=== PATIENT | male | born 1985 | race Caucasian/White ===

== ENCOUNTER 2022-08-06 11:57 | Inpatient (IN) | payer BC ==
[~2022-08-06] VITALS: Ht 180.3 cm; Wt 86.6 kg
[2022-08-06 11:30] VITALS: BP 157/90
[2022-08-06 12:12] VITALS: BP 147/102
[2022-08-06 13:29] LABS: BASO % 0.3 % (0.0-1.0); EOS % 1.2 % (1.0-4.0); HEMATOCRIT 44.5 % (42.0-52.0); LYMPH # 0.9 10*3/uL (1.3-4.4); LYMPH % 26.4 % (27.0-41.0); MEAN CELL VOLUME 100.9 fl (80.0-94.0); MEAN CORPUSCULAR HGB 35.6 pg (27.0-31.0); MEAN CORPUSCULAR HGB CONC 35.3 g/dl (33.0-37.0); MEAN PLATELET VOLUME 10.1 fl (9.6-12.3); MONO # 0.4 10*3/uL (0.1-1.0); MONO % 12.2 % (3.0-9.0); NEUT % 59.9 % (47.0-73.0); PLATELET COUNT AUTOMATED 150 10*3/uL (130-400); RED BLOOD COUNT 4.41 10*6/uL (4.50-5.90); RED CELL DISTRI WIDTH 11.9 % (0-14.5); WHITE BLOOD COUNT 3.3 10*3/uL (4.8-10.8)
[2022-08-06 13:40] LABS: ACT PARTIAL THROMBO TIME 28.3 SECONDS (20.0-32.1)
[2022-08-06 13:49] LABS: ALKALINE PHOSPHATASE 107 U/L (45-117); BUN 7 mg/dl (7-24); CHLORIDE 105 mmol/L (98-107); CREATININE 0.86 mg/dL (0.70-1.30); LIPASE 158 U/L (73-393); POTASSIUM 3.7 mmol/L (3.5-5.1); SGOT/AST 298 IU/L (3-35); SGPT/ALT 144 U/L (12-78); SODIUM 137 mmol/L (136-145); TOTAL PROTEIN 8.4 gm/dL (6.4-8.2)
[2022-08-06 17:17] VITALS: BP 143/83
[2022-08-07] VITALS: BP 134/65
[2022-08-07 00:31] LABS: BILIRUBIN 1+ (Negative); BLOOD Negative (Negative); CLARITY Clear (Clear); COLOR Dark Yellow (Yellow); GLUCOSE Negative (Negative); KETONE Negative (Negative); LEUKO ESTERASE Negative (Negative); NITRITE Negative (Negative); PH 6.5 (4.5-8.0); URINE AMPHETAMINES < 1000 (1000ng/ml); URINE BARBITURATES < 200 (200ng/ml); URINE BENZODIAZEPINES < 200 (200ng/ml); URINE CANNABINOIDS (THC) < 50 (50ng/ml); URINE COCAINE < 300 (300ng/ml); URINE METHADONE < 300 (300ng/ml); URINE OPIATES < 300 (300ng/ml); UROBILINOGEN >= 8.0 E.U./dl (0.0-1.0)
[2022-08-07 00:32] LABS: URINE PHENCYCLIDINE < 25 (25ng/ml)
[2022-08-07 00:47] LABS: WBC 0-2 wbc/hpf (0-5)
[2022-08-07 07:38] LABS: TOTAL PROTEIN 7.5 gm/dL (6.4-8.2)
[2022-08-07 08:00] VITALS: BP 139/82
[2022-08-07] MEDS ORDERED: BUPRENORPHINE HY8 MG SL (08:06)
[2022-08-07 12:00] VITALS: BP 134/80
[2022-08-07 15:42] VITALS: BP 130/80
== END 2022-08-07 19:30 | disposition left against medical advice (07) | DRG 894 ==
LOC: ED 11:57 → EDHOLD 14:22 → 5E 14:22 → EDHOLD 14:53 → 5E 16:32
PROVIDERS: Emergency Medicine; Registered Nurse; ADMIT Internal Medicine; ATTEND Internal Medicine
DX: F10.239 Alcohol dependence with withdrawal, unspecified (principal); E44.1 Mild protein-calorie malnutrition; E80.6 Other disorders of bilirubin metabolism; R74.01 Elevation of levels of liver transaminase levels; F17.210 Nicotine dependence, cigarettes, uncomplicated; R73.9 Hyperglycemia, unspecified; Z53.29 Procedure and treatment not carried out because of patient's decision for other reasons; Z82.49 Family history of ischemic heart disease and other diseases of the circulatory system; Z86.19 Personal history of other infectious and parasitic diseases; Z68.26 Body mass index [BMI] 26.0-26.9, adult; Z71.6 Tobacco abuse counseling